=== PATIENT | female | born 1995 | race Caucasian/White ===

== ENCOUNTER 2018-06-18 14:26 | Emergency (ER) | payer OTHER ==
--- NOTE | 2018-06-18 14:34 | EDPHY ---
H & P Time Seen by Provider: 06/18/18 14:32 HPI/ROS: CHIEF COMPLAINT: Snowboarding fall HISTORY OF PRESENT ILLNESS: Patient is a 22-year-old healthy female who was sliding on a rail at [place] on her snowboard when she fell off of the rail and landed on her left gluteal region. She has pain at her posterior superior pelvic ramus area. No lumbar pain. No rib pain. She has not attempted to ambulate since the fall. She does not have any weakness or numbness in her legs. She denies other injuries. She did not hit her head. Severity: Moderate Modifying factors: None REVIEW OF SYSTEMS: Constitutional: denies: chills, fever, recent illness, recent injury EENTM: denies: blurred vision, double vision, nose congestion Respiratory: denies: cough, shortness of breath Cardiac: denies: chest pain, irregular heart rate, lightheadedness, palpitations Gastrointestinal/Abdominal: denies: abdominal pain, diarrhea, nausea, vomiting, blood streaked stools Genitourinary: denies: dysuria, frequency, hematuria, pain Musculoskeletal: See HPI Skin: denies: lesions, rash, jaundice, bruising Neurological: denies: headache, numbness, paresthesia, tingling, dizziness, weakness Hematologic/Lymphatic: denies: blood clots, easy bleeding, easy bruising Immunologic/allergic: denies: HIV/AIDS, transplant 10 systems reviewed and negative except as noted EXAM: GENERAL: Well-appearing, well-nourished and in no acute distress. HEAD: Atraumatic, normocephalic. EYES: Pupils equal round and reactive to light, extraocular movements intact, sclera anicteric, conjunctiva are normal. ENT: TMs normal, nares patent, oropharynx clear without exudates. Moist mucous membranes. NECK: Normal range of motion, supple without lymphadenopathy or JVD. LUNGS: Breath sounds clear to auscultation bilaterally and equal. No wheezes rales or rhonchi. HEART: Regular rate and rhythm without murmurs, rubs or gallops. ABDOMEN: Soft, nontender, normoactive bowel sounds. No guarding, no rebound. No masses appreciated. BACK: Pain to the right posterior superior pubic ramus region. No CVA pain, no spinal tenderness, step-offs or deformities EXTREMITIES: Normal range of motion, no pitting or edema. No clubbing or cyanosis. NEUROLOGICAL: Cranial nerves II through XII grossly intact. Normal speech, normal gait. 5/5 strength, normal movement in all extremities, normal sensation , normal reflexes PSYCH: Normal mood, normal affect. SKIN: Warm, dry, normal turgor, no visible rashes or lesions. Source: Patient, EMS - Medical/Surgical History Hx Asthma: No Hx Chronic Respiratory Disease: No Hx Diabetes: No Hx Cardiac Disease: No Hx Renal Disease: No Hx Cirrhosis: No Hx Alcoholism: No Hx HIV/AIDS: No Hx Splenectomy or Spleen Trauma: No Other PMH: mild asthma, anxiety - Family History Significant Family History: No pertinent family hx - Social History Smoking Status: Never smoked Alcohol Use: Sober Constitutional: Initial Vital Signs Temperature (C) 36.7 C 06/18/18 14:35 Heart Rate 78 06/18/18 14:35 Respiratory Rate 16 06/18/18 14:35 Blood Pressure 103/84 H 06/18/18 14:35 O2 Sat (%) 98 06/18/18 14:35 O2 Delivery Mode Room Air Allergies/Adverse Reactions: No Allergies [NKDA] Allergy (Verified 06/18/18 14:33) Home Medications: Medication Instructions Recorded Diazepam [Valium 5 MG (*)] 5 mg PO TID PRN #15 tab 06/18/18 Ketorolac Tromethamine 10 mg PO Q6H PRN #16 tab 06/18/18 Medical Decision Making - Diagnostics Imaging: Discussed imaging studies w/ manager call center Radiologist ED Course/Re-evaluation: Patient's x-rays reassuring. She is moving around in the bed without significant limitation or difficulty or pain. She declined pain medication. Will have her ambulate to road test. Will also check urinalysis. 3:15 p.m. I received a call back from the radiologist. He does see 2 transverse process fractures. I will order CT imaging to further delineate. Rule out other injuries. She continues to deny pain or tenderness in her lumbar spine region. She initially declined Dilaudid but states she will now take it. 4:00 p.m. discussed the case with Dr. Perla from Neurosurgery. Is not think further imaging is necessary at this time. He does not recommend bracing. He recommends pain control and follow up as needed. 5:00 p.m. patient is feeling a better after Valium and Toradol. She has been able to ambulate to the bathroom and back. She would like to go. She states that she would prefer the Valium and Toradol as prescriptions compared to narcotics which made her feel loopy but did not help the pain. Will discharge with a short supply of this. Discussed follow-up and indications for returning. Differential Diagnosis: Partial list of the Differential diagnosis considered include but were not limited to; spinous process fracture, contusion, pelvic fracture and although unlikely based on the history and physical exam, I also considered hip injury, femoral injury, head injury, neck injury. I discussed these differential diagnoses and the plan with the patient as well as the usual and expected course. The patient understands that the diagnosis is provisional and that in medicine we are not always correct and that further workup is often warranted. Usual and customary warnings were given. All of the patient's questions were answered. The patient was instructed to return to the emergency department should the symptoms at all worsen or return, otherwise to followup with the physician as we discussed. - Data Points Medications Given: Discontinued Medications Diazepam (Valium) 5 mg IVP EDNOW ONE Stop: 06/18/18 16:24 Last Admin: 06/18/18 16:33 Dose: 5 mg Hydromorphone HCl (Dilaudid) 1 mg IVP EDNOW ONE Stop: 06/18/18 14:33 Last Admin: 06/18/18 15:23 Dose: 1 mg Ketorolac Tromethamine (Toradol) 30 mg IVP EDNOW ONE Stop: 06/18/18 16:23 Last Admin: 06/18/18 16:32 Dose: 30 mg Departure - Departure Disposition: Home, Routine, Self-Care Clinical Impression: Lumbar transverse process fracture Qualifiers: Encounter type: initial encounter Fracture type: closed Qualified Code(s): S32.009A - Unspecified fracture of unspecified lumbar vertebra, initial encounter for closed fracture Condition: Fair Instructions: Thoracolumbar Fracture (ED) Additional Instructions: You have displaced transverse process fractures on the right side of your lumbar vertebrae 1, 2, 3 and 4. Rest and take pain medication as we discussed. We encouraged early return to activity. Follow-up with Neurosurgery if your symptoms do not seem to be improving as we discussed. Return to the emergency department immediately fever develop any weakness numbness or incontinence. Referrals: Patient,NotPresent [Unknown] - As per Instructions Magdi Barnes MD [Medical Doctor] - 5-7 days, if not improved Stand Alone Forms: Work Excuse Prescriptions: Diazepam [Valium 5 MG (*)] 5 mg PO TID PRN #15 tab PRN Reason: Spasms Ketorolac Tromethamine 10 mg PO Q6H PRN #16 tab PRN Reason: Pain/inflammation
[2018-06-18] MEDS: HYDROmorphONE/DILAUDID 2 MG/ML INJ IVP ONE ×2 (15:04→15:23)
[2018-06-18] MEDS ORDERED: KETOROLAC 30 MG/1 ML SDV IVP ONE (16:22)
[2018-06-18] MEDS ORDERED: DIAZEPAM 5 MG/ML 1 ML SYR IVP ONE (16:23)
[2018-06-18 17:40] VITALS: BP 98/66
== END 2018-06-18 17:39 | disposition home or self-care (01) ==
LOC: EDUNIT#
DX: S32.018A Other fracture of first lumbar vertebra, initial encounter for closed fracture (principal); S32.028A Other fracture of second lumbar vertebra, initial encounter for closed fracture; S32.038A Other fracture of third lumbar vertebra, initial encounter for closed fracture; S32.048A Other fracture of fourth lumbar vertebra, initial encounter for closed fracture; V00.311A Fall from snowboard, initial encounter; Y93.23 Activity, snow (alpine) (downhill) skiing, snowboarding, sledding, tobogganing and snow tubing; Y92.838 Other recreation area as the place of occurrence of the external cause
CPT/HCPCS: 96374; J1170; J1885; J3360